=== PATIENT | male | born 1980 | race Two or more races ===

== ENCOUNTER 2020-10-17 10:16 | Inpatient (IN) | payer OTHER ==
[~2020-10-17] VITALS: Ht 167.6 cm; Wt 75.0 kg
[2020-10-17] MEDS ORDERED: BISACODYL 10 MG RECTAL RECTAL SUPPOSITORY PR PRN (11:15)
[2020-10-17] MEDS ORDERED: ACETAMINOPHEN 325 MG TABLET PO PRN (11:15)
[2020-10-17] MEDS ORDERED: DOCUSATE SODIUM 100 MG CAPSULE PO PRN (11:15)
[2020-10-17] MEDS ORDERED: ALBUTEROL SULFATE 2.5 MG/0.5 ML NEB SOLUTION NEB PRN (11:15)
[2020-10-17] MEDS ORDERED: IPRATROPIUM BROMIDE 0.5 MG/2.5 ML NEB SOLUTION NEB PRN (11:15)
[2020-10-17] MEDS ORDERED: ONDANSETRON HCL 4 MG/2 ML VIAL IVP PRN (11:15)
[2020-10-17] MEDS ORDERED: 0.9% SODIUM CHLORIDE 10 ML SYRINGE IVP PRN (11:15)
[2020-10-17] MEDS: PANTOPRAZOLE SODIUM 40 MG DR TABLET PO SCH (11:48)
[2020-10-17 14:23] VITALS: BP 135/87
[2020-10-17] MEDS: HEPARIN SODIUM,PORCINE 5,000 UNITS/ML VIAL SQ SCH (19:42)
[2020-10-17 20:17] VITALS: BP 95/61
[2020-10-17 20:20] VITALS: BP 98/51
[2020-10-18 05:02] VITALS: BP 116/51
[2020-10-18 07:27] LABS: BASOPHILS % (AUTO) 0.7 % (0.0-2.0); EOSINOPHILS % (AUTO) 3.8 % (1.0-6.0); HEMATOCRIT 43.6 % (41-53); HEMOGLOBIN 14.6 g/dL (13.5-17.5); LYMPHOCYTES # (AUTO) 1.9 K/uL (1.0-4.8); LYMPHOCYTES % (AUTO) 23.9 % (22.0-44.0); MEAN CORPUSCULAR HEMOGLOBIN 27.9 pg (26.0-34.0); MEAN CORPUSCULAR HGB CONC 33.5 G/dL (31.0-37.0); MEAN CORPUSCULAR VOLUME 83 fL (80-100); MONOCYTES # (AUTO) 0.8 K/uL (0.1-1.0); MONOCYTES % (AUTO) 10.4 % (2.0-9.0); NEUTROPHILS # (AUTO) 4.7 K/uL (1.8-7.7); NEUTROPHILS % (AUTO) 61.2 % (40.0-70.0); PLATELET COUNT (AUTO) 361 K/uL (150-450); RED BLOOD CELL COUNT(AUTO) 5.25 MIL/uL (4.50-5.90); RED CELL DISTRIBUTION WIDTH 14.8 % (11.5-14.5)
[2020-10-18 07:36] LABS: ANION GAP 4 mmol/L (8-16); CALCIUM, TOTAL 9.3 mg/dL (8.8-10.5); CARBON DIOXIDE 27 mmol/L (22-29); CHLORIDE 104 mmol/L (98-107); CREATININE 0.83 mg/dL (0.60-1.30); GLOMERULAR FILTR. RATE CALC > 60 mL/min (>60); GLUCOSE,RANDOM 106 mg/dL (70-110); POTASSIUM 3.9 mmol/L (3.5-5.1); SODIUM SERUM 135 mmol/L (136-145); UREA NITROGEN, BLOOD 9 mg/dL (7-18)
[2020-10-18 08:23] VITALS: BP 127/70
[2020-10-18] MEDS: HEPARIN SODIUM,PORCINE 5,000 UNITS/ML VIAL SQ SCH ×2 (09:05→19:23)
[2020-10-18] MEDS: PANTOPRAZOLE SODIUM 40 MG DR TABLET PO SCH (09:05)
[2020-10-18 16:09] VITALS: BP 112/58
[2020-10-18] MEDS: HYDROCORTISONE 1% 120 ML LOTION TP PRN (17:02)
[2020-10-18 19:00] VITALS: BP 119/76
[2020-10-19 04:12] VITALS: BP 108/55
[2020-10-19] MEDS: PANTOPRAZOLE SODIUM 40 MG DR TABLET PO SCH (08:01)
[2020-10-19] MEDS: HEPARIN SODIUM,PORCINE 5,000 UNITS/ML VIAL SQ SCH ×2 (08:02→20:09)
[2020-10-19 08:31] VITALS: BP 111/72
[2020-10-19] MEDS ORDERED: TraZODone HCL 50 MG TABLET PO PRN (12:00)
[2020-10-19] MEDS: HYDROCORTISONE 1% 120 ML LOTION TP PRN (16:34)
[2020-10-19] MEDS: DiphenhydrAMINE HCL 25 MG CAPSULE PO PRN ×2 (17:23→23:23)
[2020-10-19 19:23] VITALS: BP 111/67
[2020-10-19] MEDS ORDERED: TraZODone HCL 50 MG TABLET PO SCH (21:00)
[2020-10-20 04:32] VITALS: BP 117/70
[2020-10-20 08:09] VITALS: BP 113/67
[2020-10-20] MEDS: DiphenhydrAMINE HCL 25 MG CAPSULE PO PRN ×2 (08:36→17:29)
[2020-10-20] MEDS: HEPARIN SODIUM,PORCINE 5,000 UNITS/ML VIAL SQ SCH ×2 (08:36→19:51)
[2020-10-20] MEDS: PANTOPRAZOLE SODIUM 40 MG DR TABLET PO SCH (08:45)
[2020-10-20 19:59] VITALS: BP 107/65
[2020-10-21 04:25] VITALS: BP 113/64
== END 2020-10-21 06:15 | DRG 561 ==
LOC: EMS 10:16 → 6S 11:15
PROVIDERS: ADMIT Internal Medicine; ATTEND Internal Medicine
DX: Z44.121 Encounter for fitting and adjustment of partial artificial right leg (principal); Z89.511 Acquired absence of right leg below knee; F17.210 Nicotine dependence, cigarettes, uncomplicated
CPT/HCPCS: 97161; J1644